=== PATIENT | female | born 1950 | race Caucasian/White ===

== ENCOUNTER 2021-01-25 13:49 | Emergency (ER) | payer OTHER ==
[~2021-01-25 13:49] MED LIST: ASPIR-LOW81 MG PO; BUMETANIDE2 MG PO; COREG 25MG TAB25 MG PO; DICLOFENAC SOD100 GM TP; FLECAINIDE ACE100 MG PO; GLUCOSAMINE CH1 EAC6 PO; GLUCOSAMINE CH1 EAC7 PO; IPRAT-ALBUT 0.5-3 ML INH; K-TAB ER20 MEQ PO; LOPRESSOR 25 MG25 MG PO; MELOXICAM15 MG PO; NEURONTIN 400400 MG PO; NITROSTAT 0.40.4 MG SL; PAIN RELIEF650 MG PO; PROAIR HFA8.5 GM INH; REPATHA 140MG/ML SQ; ROBAXIN 750 MG750 MG PO; SINGULAIR10 MG PO; SOTALOL80 MG PO; TAMBOCOR 100 M100 MG PO; TAMIFLU75 MG PO; TOPROL XL 25 MG25 MG PO; VALACYCLOVIR1000 MG PO; VITAMIN D 11000 UNIT PO; VITAMIN D2000 UNI1 PO; XARELTO20 MG PO; XYZAL5 MG PO; ZETIA10 MG PO; ZYLOPRIM 300 M300 MG PO
== END 2021-01-25 15:45 | disposition home or self-care (01) ==
LOC: ER1 13:49
DX: T14.8XXA Other injury of unspecified body region, initial encounter (principal); E78.5 Hyperlipidemia, unspecified; Z88.8 Allergy status to other drugs, medicaments and biological substances; Z88.0 Allergy status to penicillin; Z88.1 Allergy status to other antibiotic agents; V49.40XA Driver injured in collision with unspecified motor vehicles in traffic accident, initial encounter
CPT/HCPCS: 72125; 72131; 99283

== ENCOUNTER → 2021-04-12 | Outpatient (CLI) | payer MEDICARE | LOC: KOH-I 13:09 | DX: M25.562 Pain in left knee (principal) | CPT/HCPCS: 73562 ==

== ENCOUNTER → 2021-08-23 | Outpatient (CLI) | payer MEDICARE | LOC: LAB 10:18 | DX: Z20.822 Contact with and (suspected) exposure to COVID-19 (principal) | CPT/HCPCS: U0002 ==

== ENCOUNTER 2021-09-28 00:12 | Emergency (ER) | payer MEDICARE ==
[2021-09-28 00:53] LABS: HEMOGLOBIN 12.2 gm/dl (12.3-15.3); RED BLOOD COUNT 4.41 M/UL (4.00-5.10); WHITE BLOOD COUNT 11.8 K/UL (4.5-11.0)
[2021-09-28 01:48] LABS: BUN/CREATININE RATIO 22 (0-10)
== END 2021-09-28 05:29 | disposition home or self-care (01) ==
LOC: ER1 00:12
PROVIDERS: Student in an Organized Health Care Education/Training Program
DX: I48.0 Paroxysmal atrial fibrillation (principal); I50.9 Heart failure, unspecified; Z90.49 Acquired absence of other specified parts of digestive tract; Z88.1 Allergy status to other antibiotic agents; Z20.822 Contact with and (suspected) exposure to COVID-19
CPT/HCPCS: 0240U; 71045; 80053; 82550; 82553; 83880; 84484; 85025; 93005; 96372; 99285; J2765